=== PATIENT | female | born 1960 | race Asian ===

== ENCOUNTER 2019-04-07 10:14 | Day surgery (SDC) | payer OTHER ==
[2019-01-05 14:13] VITALS: Ht 149.9 cm; Wt 60.2 kg
[~2019-04-07] VITALS: Ht 149.9 cm; Wt 60.2 kg
[2019-04-07] VITALS (13 sets, daily range): BP systolic 85–109; BP diastolic 52–62; PULSE 60–70; RESP 12–19
[~2019-04-07 10:14] MED LIST: CEFAZOLIN 2 GM/50 ML (PMX) 50 ML IVPB ONE; CEFAZOLIN 2 GM/50 ML (PMX) 50 ML IVPB SCH; SOD CHLORIDE 0.9% 1,000 ML IV ONE; SOD CHLORIDE 0.9% 1,000 ML IV SCH
[2019-04-07] MEDS ORDERED: ESTR1TAB13 PO (10:58)
--- NOTE | 2019-04-07 12:02 | PREAC ---
Date/Time of Note Date/Time of Note DATE: 04/07/19 TIME: 11:58 Anesthesia Eval and Record Evaluation Time Pre-Procedure Interview DATE: 04/07/19 TIME: 11:58 Age 58 Sex female NPO: 8 hrs Preoperative diagnosis Right Thigh Lesion Planned procedure Excision of Lesion Past Medical History Past Medical History: None Surgery & Anesthesia Issues No known issue Meds Anticoagulation: No Beta Ema within 24 hr: No Reason Beta Ema not given: Other (Shy Needed) Reported Medications Estrogen,Con/M-Progest Acet (Prempro 0.3 mg-1.5 mg Tablet) 1 Each Tablet, 1 EACH PO DAILY, TAB 04/07/19 Current Medications Cefazolin Sodium/ Dextrose 50 ml @ 100 mls/hr PRE-OP IVPB ; Start 04/07/19 at 06:00; Stop 04/07/19 at 18:00 Sodium Chloride 1,000 ml @ 75 mls/hr [id number] ONCE IV Last administered on at 10:46; Admin Dose 75 MLS/HR; Start 04/07/19 at 06:00; Stop 04/07/19 at 19:19 Meds reviewed: Yes Allergies Coded Allergies: No Known Drug Allergies (Unverified Allergy, Unknown, 04/07/19) Allergies Reviewed: Yes Labs/Studies Labs Reviewed: Reviewed by anesthesiologist test: N/A Pre-procedure Exam Last vitals Vital Signs Date Temp Pulse Resp B/P (MAP) Pulse Ox O2 O2 Flow FiO2 Time Delivery Rate 04/07/19 97.0 70 16 109/62 99 Room Air 10:55 (78) Airway: Adequate mouth opening Mallampati: Mallampati II Teeth: Normal Lung: Normal Heart: Normal Anticipated Difficutly with IV: Anticipate Difficult IV Access ASA Physical Status ASA physical status: 2 Emergency: None Planned Anesthetic General/MAC: MAC Pre-operative Attestations Prior to commencing anesthesia and surgery, the patient was re-evaluated, there was verification of: *The patient's identity *The results of appropriate recent lab work and preoperative vital signs *The above evaluation not changing prior to induction *Anesthetic plan, risk benefits, alternative and complications discussed with patient/family; questions answered; patient/family understands, accepts and wishes to proceed. CRISTAL JULES MD April 07, 2019 12:02
[2019-04-07] MEDS ORDERED: PROPOFOL 20 ML ONE (12:06)
[2019-04-07] MEDS ORDERED: CEFAZOLIN 1 GM INJ ONE (12:06)
[2019-04-07] MEDS ORDERED: MIDAZOLAM 1 MG/ML 2 ML INJ ONE (12:06)
[2019-04-07] MEDS ORDERED: FENTAnyl 50 MCG/ML VIAL ONE (12:07)
[2019-04-07] MEDS ORDERED: BUPIVACAINE 0.25%/EPI (SDV) 30 ML INJ ONE (12:23)
--- NOTE | 2019-04-07 12:37 | HPN ---
Date/Time of Note Date/Time of Note DATE: 04/07/19 TIME: 12:37 Interval H&P Admission Note Pt. seen H&P reviewed: No system changes SARA SANCHEZ MD April 07, 2019 12:37
[2019-04-07] MEDS ORDERED: PHENYLephrine (100 MCG/ML) 10ML SYG ONE (12:48)
[2019-04-07] MEDS ORDERED: LIDOCAINE 1% (MPF) 30 ML INJ ONE (12:50)
--- NOTE | 2019-04-07 13:11 | OPR ---
Date/Time of Note Date/Time of Note DATE: 04/07/19 TIME: 13:07 Operative Report Procedure Date: April 07, 2019 Preoperative Diagnosis Recurrent right thigh mass Postoperative Diagnosis Recurrent right thigh mass Operation/Procedure Performed Excision of recurrent right thigh mass, 3.5 cm Surgeon see signature line [employer] None Anesthesia Type: MAC Anesthesiologist: CRISTAL JULES MD Estimated Blood Loss: minimal Transfusion none Specimen Right thigh mass Grafts/Implants none Complications none Pt Condition Post Procedure: stable Disposition: PACU Indications The patient is a 57-year-old female who previously had an excision of a right inner thigh mass several years ago. She presented to the office after the mass recurred. She was scheduled for elective excision. All risks and benefits of the procedure including, but not limited to: Wound infection, excessive blee ding, neurovascular injury, postoperative seroma/hematoma formation, mass recurrence, etc. were all explained to the patient in full detail. The patient fully understood and wished to proceed with the procedure. Informed consent was obtained Procedure Description The patient was brought to the operating room and placed supine on the operating table. Bilateral sequential compression devices were placed on both lower extremities. A dose of broad-spectrum perioperative intravenous antibiotics was given. The mass which was located in the right inner thigh just below the groin crease was preoperatively marked and confirmed with the patient in the holding area. After achieving adequate sedation the patient's right thigh was prepped and draped in standard surgical fashion. After performance of the surgical timeout, 1% lidocaine was injected over the area of the mass. Incision was then made over the mass using a 15 blade scalpel. Incision was carried down through the skin and dermis into the subcutaneous tissues using sharp dissection. In the subcutaneous tissues a lipomatous neoplasm was identified. It was dissected free of surrounding tissues and delivered through the incision. It was transected at its base and passed off the field as specimen. Measured approximately 3.5 cm in maximal dimension. Hemostasis was then inspected for and noted to be total. The wound cavity was then irrigated with irrigation which returned clear. 0.25% Marcaine with epinephrine was then injected around the incision site. Incision was reapproximated using 4-0 Monocryl suture in a running subcuticular fashion. Incision was cleaned and Dermabond was applied. Patient was transported to the recovery room in stable condition. All counts were correct at the end of the case x2 SARA SANCHEZ MD 8, 2019 13:11
--- NOTE | 2019-04-07 13:19 | PAC ---
Date/Time of Note Date/Time of Note DATE: 04/07/19 TIME: 13:18 Post-Anesthesia Notes Post-Anesthesia Note Last documented vital signs Vital Signs Date Temp Pulse Resp B/P (MAP) Pulse Ox O2 O2 Flow FiO2 Time Delivery Rate 04/07/19 97.0 70 16 109/62 99 Room Air 10:55 (78) Activity: WNL Respiratory function: WNL Cardiovascular function: WNL Mental status: Baseline Pain reasonably controlled: Yes Hydration appropriate: Yes Nausea/Vomiting absent: Yes CRISTAL JULES MD April 07, 2019 13:18
[2019-04-07] MEDS ORDERED: ONDANSETRON 4 MG INJ IV PRN (13:30)
[2019-04-07] MEDS ORDERED: IBUPROFEN 600 MG TAB PO PRN (13:30)
== END 2019-04-07 15:00 | disposition home or self-care (01) ==
LOC: SDS 10:14
PROVIDERS: ATTEND Surgery
DX: D17.23 Benign lipomatous neoplasm of skin and subcutaneous tissue of right leg (principal); E78.5 Hyperlipidemia, unspecified; Z85.72 Personal history of non-Hodgkin lymphomas; Z82.49 Family history of ischemic heart disease and other diseases of the circulatory system; Z80.0 Family history of malignant neoplasm of digestive organs
CPT/HCPCS: 27337; J0690; J2250; J2370; J3010; Z7512; Z7610; 88307